=== PATIENT | female | born 1950 | race Caucasian/White ===

== ENCOUNTER → 2024-12-08 | Outpatient (CLI) | payer MEDICARE, OTHER, SELFPAY ==
--- NOTE | 2024-12-08 14:04 | MRI_ITS ---
PROCEDURE: SPINE LUMBAR (ROUTINE) 12/08/2024 REASON FOR EXAM: WORSENING PAIN X3 MONTHS, RADICULOPATHY TECHNIQUE: Procedure Code: MRISPL Modality: MR Procedure: SPINE LUMBAR (ROUTINE) COMPARISON: Lumbar spine x-ray November 02, 2024. FINDINGS: Vertebrae: Preserved in height and signal. Alignment: Anterolisthesis L5 on S1 by 2 mm. Conus Medullaris: Within normal limits. T12-L1: Small disc bulge. No significant foraminal or canal stenosis. L1-2: Disc bulge. Annular fissure. Ligamentum flavum hypertrophy. No significant foraminal or canal stenosis. L2-3: Disc bulge. Annular fissure. Facet joints arthropathy, joint fluid effusion and ligamentum flavum hypertrophy. Moderate bilateral foramina stenosis. Mild canal stenosis. L3-4: Disc desiccation. Disc bulge. Moderate right foramina stenosis and mass- effect upon the exiting nerve. Mild left foramina stenosis. Mild canal stenosis. L4-5: Disc bulge. Facet joint arthropathy with fluid effusion. Ligamentum flavum hypertrophy. Moderate right and mild left foramina stenosis. Moderate canal stenosis. L5-S1: Disc bulge. Facet joint arthropathy with fluid effusion. No foraminal or canal stenosis. Sacrum: Unremarkable. MRI/Spine Lumbar (Routine) IMPRESSION: Degenerate changes predominantly at L4-L5 where there is canal stenosis and mod erate right foramina stenosis with potential mass-effect upon the exiting right L5 nerve. Moderate right foramina stenosis at L3-L4 more sleep from facet joint arthropat hy and potential mass-effect upon the exiting right L3 nerve. Moderate bilateral foramina stenosis at L2-L3. Reading Location: [facility]
== END | disposition home or self-care (01) ==
LOC: MRI 13:55
PROVIDERS: Referring Provider Student in an Organized Health Care Education/Training Program; Visit Provider Student in an Organized Health Care Education/Training Program
DX: M54.16 Radiculopathy, lumbar region (principal); M43.16 Spondylolisthesis, lumbar region; M51.362 Other intervertebral disc degeneration, lumbar region with discogenic back pain and lower extremity pain
CPT/HCPCS: 72148